=== PATIENT | female | born 1990 | race African-American/Black ===

== ENCOUNTER 2016-11-01 15:27 | Inpatient (IN) ==
[2016-11-01] MEDS ORDERED: ONDANSETRON 4 MG/2 ML VIAL IV PRN ×2 (16:43→18:14)
[2016-11-01] MEDS ORDERED: FAMOTIDINE 20 MG/2 ML VIAL IV ONE (16:46)
[2016-11-01] MEDS ORDERED: CITRIC ACID/SODIUM CITRATE 30 ML UDCUP PO ONE (16:46)
[2016-11-01] MEDS ORDERED: LACTATED RINGERS 1,000 ML IV ONE (16:50)
[2016-11-01] MEDS ORDERED: OXYTOCIN/LR 20 UNIT/1,000 ML BAG IV ONE ×2 (16:51→18:14)
[2016-11-01] MEDS ORDERED: LACTATED RINGERS 1,000 ML IV SCH ×2 (17:00)
[2016-11-01 17:17] LABS: Barbiturates Screen,Urine Negative (Negative); Benzodiazepines Screen,Urine Negative (Negative); Cannabinoid Screen,Urine Negative (Negative); Opiate Screen,Urine Negative (Negative); Phencyclidine Screen,Urine Negative (Negative)
[2016-11-01 17:47] LABS: Basophils % 0.1 % (0.0-0.8); Eosinophils % 0.2 % (0.00-10.9); Hematocrit 35.9 VOL% (35.7-47.0); Hemoglobin 12.2 GM/DL (12.0-16.0); Immature Granulocytes % 0.6 %; Immature Granulocytes Absolute 0.07 #; Lymphocytes % 7.7 % (21.3-54.2); Mean Corpuscular Hemoglobin 27 PG (27-34); Mean Corpuscular Volume 80.1 FL (87-102); Mean Platelet Volume 12.5 FL (9.6-12.0); Monocytes # 1.1 10*3/uL (0.11-0.8); Monocytes % 8.9 % (1.7-12.7); Neutrophils # 10.2 10*3/uL (1.4-7.4); Neutrophils % 82.5 % (38.7-73.9); Platelet Count 192 T/CUMM (130-400); Red Blood Count 4.48 MC/CUMM (3.8-5.5); Red Cell Distribution Width 14.3 % (9.3-17.3); White Blood Count 12.3 T/CUMM (4-12)
[2016-11-01] MEDS ORDERED: PHENYLEPHRINE 1 MG/10 ML SYRINGE IV ONE (18:00)
[2016-11-01] MEDS ORDERED: ONDANSETRON 4 MG/2 ML VIAL ONE (18:00)
--- NOTE | 2016-11-01 18:07 | OB/GYN History & Physical ---
History of Present Illness History of present illness: Ms. Heller is a 26 year old female Pt. 26y/o @ 39 wks QUENTIN 11/08/16 with h/o previous c/s x 1 presents with complaints of leakage of fluid since 130am today. + contractions, no vaginal bleeding. + movement. Pt. care with Dr. Ayala. Home Medications Medication Instructions Recorded Confirmed Type Multivitamin () [ 1 tablet PO DAILY 11/01/16 11/01/16 History Vitamin] Allergies Allergy/AdvReac Type Severity Reaction Status Date / Time No Known Allergies Allergy Unverified 01/09/15 08:15 12 point system: reviewed and no additional remarkable complaints except as stated Medical,Surgical,& Family Hx - Medical History Neurology: No history of: Seizures - Surgical History Reproductive Surgeries: Surgical HX of;: Section (2006) - Social History Smoking Status: Smoker, status unknown Frequency of Alcohol Use: None Type of Drug Use: None 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 General appearance: mild distress - Antepartum / Post Antepartum Exam Cervix - Dilatation: 3cm Heart Rate: category 2 tracing, moderate variability, occasional variables with late co [place]: regular - Respiratory Respiratory exam: Present: clear to auscultation bilaterally - Cardiovascular Cardiovascular exam: Present: regular rate and rhythm - GI/Abdominal GI/Abdominal exam: Present: normal bowel sounds - Extremities Exam Extremities exam: Present: normal inspection Assessment and Plan (1) Previous delivery, antepartum Status: Acute Current Visit: Yes (2) Active labor at term Status: Acute Assessment and plan: 1. admit to labor and delivery 2. ivfs 3. labs 4. continous external monitoring 5. i counseled pt regarding heart rate tracing- category 2 with occasional variables and my recommendation to proceed with repeat delivery vs . pt expressed her understanding and agrees to repeat c/s. R/B/ A discussed and patient expressed her understanding. all questions answered. consent signed and witnessed. Current Visit: Yes Results - Labs CBC & BMP: 11/01/16 16:23
--- NOTE | 2016-11-01 18:13 | Operative Note ---
Date of procedure: 11/01/16 Pre-op diagnosis: 26y/o @ 39 with prev c/s x 1 SROM in labor with variable decels for RPT c/s Post-op diagnosis: same Procedure: FINDINGS: A living male , vertex , time 1910, NASIM position, weight 7lbs 5oz, scores 8 and 9. PROCEDURE: REPEAT DELIVERY, LYSIS OF ADHESIONS. DESCRIPTION OF PROCEDURE: The patient was brought to the operating room after her spinal preparation, and Wen had been performed. The abdomen was prepped and draped in the normal sterile fashion and tested for analgesia. When found to be adequate, a low-abdominal Pfannenstiel incision was made with the first knife and carried down to the fascia with the bovie. The fascia was cleared of subcutaneous tissue. Bleeding points were clamped with hemostats and Bovie coagulated. The fascia was incised in the midline and extended laterally with curved Hill scissors. Chema clamps were placed on the fascial edge, anteriorly. The rectus muscles were by sharp dissection. The rectus muscles were divided in the midline by sharp dissection. Dense adhesions lysed carefully between rectus muscle and underlying parietoperitoneum. The parietoperitoneum was grasped with hemostats and carefully entered and the incision extended with Metzenbaum scissors. The bladder blade was inserted. The visceroperitoneum was grasped with smooth pickups, entered with Metzenbaum scissors, and extended laterally. The bladder flap was created by gentle blunt dissection and placed behind the bladder blade. The lower uterine segment was carefully incised with a scalpel and extended laterally with bandage scissors. A living male was delivered atraumatically from the vertex presentation. The baby was suctioned and cried immediately, and was handed to the pediatric team in attendance. The placenta was delivered with gentle uterine massage. The uterus was explored with a wet lap sponge and found to be clear of membranes. The angles of the incision were sutured 0 vicryl in a locked running fashion. Hemostasis was carefully checked and found to be satisfactory. The fallopian tubes and ovaries were inspected and found to be normal bilaterally. Interceed was then placed over the uterine incision. The peritoneum was approximated using 2. 0 chromic in a running fashion. The muscle was reapproximated using 2.0 chromic in an interrupted fashion. The fascia was closed with 0-Vicryl in a running fashion. The subcutaneous tissue was approximated with interrupted 2-0 plain catgut. The skin was closed with insorb lee. The patient was transferred to the recovery room in good condition. Anesthesia: spinal Surgeon / Physician: Aide Greene Estimated blood loss: other (750CC) Specimens: other (placenta, cord, membranes) Condition: stable Disposition: floor Results - Labs CBC & BMP: 11/02/16 04:01 Discharge Plan - Discharge Data Disposition: Disch To Home/Self Care - Discharge Medications New oxyCODONE/ACETAMINOPHEN 5-325 [Percocet 5-325] 1 tablet PO Q6H PRN #30 tablet PRN Reason: Abdominal Pain No Action Multivitamin () [ Vitamin] 1 tablet PO DAILY - Follow Up or Referral Follow Up: Lionel Ayala DO [Primary Care Provider] - 1 Week - Forms/Instructions Instructions: Depression (GEN), Perineal Care (DC), Surgical Site Infections (GEN), Wound Healing and Your Diet (DC), Bleeding (DC)
[2016-11-01] MEDS ORDERED: ACETAMINOPHEN 325 MG TABLET PO PRN (18:14)
[2016-11-01] MEDS ORDERED: RHO(D) IMMUNE GLOBULIN 300 MCG SYRINGE IM ONE ×2 (18:14→18:30)
[2016-11-01] MEDS ORDERED: TISSUE ADHESIVE 1 EACH APPLICATOR TOP ONE (19:37)
[2016-11-01 19:42] LABS: Cord Arterial Blood HCO3 20.1 MMOL/L
[2016-11-01 19:44] LABS: Cord Venous Blood HCO3 21.9 MMOL/L; Cord Venous Blood PCO2 61.5 MMHG; Cord Venous Blood PO2 13.1
[2016-11-01] MEDS ORDERED: MIDAZOLAM 2 MG/2 ML VIAL ONE (20:36)
[2016-11-01] MEDS ORDERED: MORPHINE 10 MG/10 ML VIAL ONE (20:36)
--- NOTE | 2016-11-01 20:40 | Anesthesia Post-Op ---
Anesthesia Post OP - Post Ansesthetic Evaluation Patient seen in post op: Yes Resp: within normal limits CV: within normal limits Mental: within normal limits Temp: within normal limits [id number]: within normal limits Nausea and Vomiting: within normal limits Pain: within normal limits
[2016-11-01] MEDS ORDERED: diphenhydrAMINE 50 MG/1 ML VIAL IV PRN (23:18)
[2016-11-01] MEDS ORDERED: diphenhydrAMINE 50 MG/1 ML VIAL ONE (23:20)
[2016-11-01] MEDS: DOCUSATE SODIUM 100 MG CAPSULE PO SCH (23:26)
[2016-11-01] MEDS: LACTATED RINGERS 1,000 ML IV SCH (23:28)
[2016-11-02 04:11] LABS: Basophils % 0.1 % (0.0-0.8); Hematocrit 33.2 VOL% (35.7-47.0); Hemoglobin 11.3 GM/DL (12.0-16.0); Immature Granulocytes % 0.4 %; Immature Granulocytes Absolute 0.06 #; Lymphocytes # 0.8 10*3/uL (1.4-4.0); Lymphocytes % 5.4 % (21.3-54.2); Mean Corpuscular Hemoglobin 27 PG (27-34); Mean Corpuscular Volume 80.4 FL (87-102); Mean Platelet Volume 11.6 FL (9.6-12.0); Monocytes # 0.8 10*3/uL (0.11-0.8); Monocytes % 5.2 % (1.7-12.7); Neutrophils % 88.9 % (38.7-73.9); Platelet Count 156 T/CUMM (130-400); Red Blood Count 4.13 MC/CUMM (3.8-5.5); Red Cell Distribution Width 14.1 % (9.3-17.3); White Blood Count 14.7 T/CUMM (4-12)
[2016-11-02 04:15] LABS: Apearance,Urine CLEAR (Clear); Bacteria,Urine Occasional /HPF (Few); Bilirubin,Urine Negative (Negative); Blood, Urine Negative (Negative); Glucose,Urine (UA) Negative (Negative); Ketones,Urine Negative (Negative); Mucus,Urine Occasional /LPF (Occasional); Nitrite,Urine Negative (Negative); Protein,Urine Negative; Urine Color Yellow (Yellow); Urine Specific Gravity 1.014 (1.001-1.035)
[2016-11-02 05:15] LABS: Hypochromasia Slight; Platelet Estimate Normal
[2016-11-02] MEDS ORDERED: diphenhydrAMINE CAP 50 MG CAPSULE PO PRN (05:27)
[2016-11-02] MEDS: LACTATED RINGERS 1,000 ML IV SCH (06:26)
[2016-11-02] MEDS: MULTIVITAMIN (PRENATAL) TABLET PO SCH (08:53)
[2016-11-02] MEDS: DOCUSATE SODIUM 100 MG CAPSULE PO SCH ×2 (08:53→20:16)
--- NOTE | 2016-11-02 13:08 | OB/GYN Progress Note ---
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 Having minimal discomfort and requiring minimal pain medication. Exam CATARACT LENS GENERATOR - Constitutional Vitals: Vital Signs Temp Pulse Resp BP Pulse Ox 11/02/16 08:00 98.2 F 86 20 102/66 98 11/02/16 04:25 98.7 F 76 18 113/64 97 11/02/16 01:55 98.6 F 78 16 115/67 97 11/02/16 01:00 20 11/02/16 00:00 97.6 F 114 H 20 103/51 99 11/01/16 23:00 97.2 F L 89 20 109/66 98 General appearance: no acute distress - Head Head exam: Present: normal inspection - Respiratory Respiratory exam: Present: clear to auscultation bilaterally - Cardiovascular Cardiovascular exam: Present: regular rate and rhythm - GI/Abdominal GI/Abdominal exam: Present: soft. Absent: tenderness - Extremities Exam Extremities exam: Present: normal inspection - Back Exam Back exam: Present: normal inspection - Neurological Exam Neurological exam: Present: alert, oriented X3 - Psychiatric Psychiatric exam: Present: normal affect, normal mood - Skin Skin exam: Present: warm, dry Results - Labs CBC & BMP: 11/02/16 04:01
[2016-11-02] MEDS: IBUPROFEN 800 MG TABLET PO PRN (16:13)
[2016-11-02] MEDS: MAGNESIUM HYDROXIDE SUSP 30 ML UDCUP PO PRN (20:16)
[2016-11-03] MEDS: MAGNESIUM HYDROXIDE SUSP 30 ML UDCUP PO PRN ×2 (08:43→20:20)
[2016-11-03] MEDS: MULTIVITAMIN (PRENATAL) TABLET PO SCH (08:43)
[2016-11-03] MEDS: DOCUSATE SODIUM 100 MG CAPSULE PO SCH ×2 (08:43→20:20)
[2016-11-03] MEDS: SIMETHICONE CHEW 80 MG TABLET PO PRN (08:44)
[2016-11-03] MEDS: IBUPROFEN 800 MG TABLET PO PRN (08:44)
--- NOTE | 2016-11-03 10:01 | OB/GYN Progress Note ---
Assessment and Plan (1) Status post repeat low transverse section Status: Acute Assessment and plan: POD#2 s/p Repeat due to failed . Pt with gas pains but is otherwise doing well. The pt is to ambulate. precautions given. 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 She is tolerating food however. Her bleeding and pain are under control. Exam IMPRESS ASSOCIATE - Constitutional Vitals: Vital Signs Temp Pulse Resp BP Pulse Ox 11/03/16 08:00 20 11/03/16 06:47 18 11/03/16 06:00 18 11/03/16 05:00 18 11/03/16 04:00 97.5 F L 79 18 94/51 97 11/03/16 03:00 18 11/03/16 02:00 18 11/03/16 01:00 18 11/02/16 23:58 97.1 F L 62 18 114/62 98 11/02/16 23:00 18 11/02/16 20:00 97.1 F L 77 18 90/56 98 11/02/16 16:00 98.4 F 85 18 105/62 97 11/02/16 15:00 16 11/02/16 14:00 16 11/02/16 12:00 97.2 F L 82 16 106/67 97 General appearance: normal weight, mild distress - Respiratory Respiratory exam: Absent: accessory muscle use - Cardiovascular Cardiovascular exam: Present: regular rate and rhythm - GI/Abdominal GI/Abdominal exam: Absent: guarding, tenderness, rebound - Extremities Exam Extremities exam: Absent: calf tenderness - Neurological Exam Neurological exam: Present: alert, oriented X3 - Psychiatric Psychiatric exam: Present: normal affect - Skin Skin exam: Present: normal color Results - Labs CBC & BMP: 11/02/16 04:01
[2016-11-04] MEDS ORDERED: BISACODYL 10 MG SUPP RECTAL PRN (07:33)
[2016-11-04] MEDS: SIMETHICONE CHEW 80 MG TABLET PO PRN (08:43)
[2016-11-04] MEDS: DOCUSATE SODIUM 100 MG CAPSULE PO SCH (08:43)
[2016-11-04] MEDS: MULTIVITAMIN (PRENATAL) TABLET PO SCH (08:43)
[2016-11-04] MEDS: MAGNESIUM HYDROXIDE SUSP 30 ML UDCUP PO PRN (08:43)
--- NOTE | 2016-11-04 09:34 | Discharge Summary ---
Hospital Course - Hospital Course Hospital Course: The patient is a 26-year-old 00 to who came in complaining of leakage of fluid and was going to attempt a however due to variables on the heart tones it was decided to proceed with a repeat . The patient had a please review the op note for details of the procedure. The postoperative care was routine and without any complications the patient was ready to go home on postoperative day #3. Precautions were given. She was to follow-up with Dr. Ayala within a week. In addition, the pt started passing gas and even had a BM on POD#2. Diagnosis - Discharge Diagnosis (1) Status post repeat low transverse section Status: Acute Specialty Discharge - Follow Up or Referrals Follow up with: Lionel Ayala DO [Primary Care Provider] - 1 Week Discharge Plan - Discharge Data Disposition: Disch To Home/Self Care Condition at Discharge: Stable Discharge Diet: advance to your usual diet Activity: no lifting Hygiene: may shower Weight Bearing at Discharge: full weight bearing Driving: not until seen by doctor Contact your physician if you experience:: fever over 101, Difficulty voiding, Redness or swelling, Nausea/Vomiting, Shortness of breath, Bleeding, pain uncontrolled by pain medications - Discharge Medications New oxyCODONE/ACETAMINOPHEN 5-325 [Percocet 5-325] 1 tablet PO Q6H PRN #30 tablet PRN Reason: Abdominal Pain No Action Multivitamin () [ Vitamin] 1 tablet PO DAILY - Follow Up or Referral - Forms/Instructions Instructions: Depression (GEN), Perineal Care (DC), Surgical Site Infections (GEN), Wound Healing and Your Diet (DC), Bleeding (DC) Exam - Constitutional Vitals: Period Temp Pulse Resp BP Sys/Marr Pulse Ox Last 24 Hr 97.4 F-98.7 F 81-105 18-20 107-117/63-74 98-99 General appearance: normal weight, no acute distress - Respiratory Respiratory exam: Absent: accessory muscle use - Cardiovascular Cardiovascular exam: Present: regular rate and rhythm - GI/Abdominal GI/Abdominal exam: Absent: guarding, tenderness, rebound - Extremities Exam Extremities exam: Absent: calf tenderness - Neurological Exam Neurological exam: Present: alert, oriented X3 - Psychiatric Psychiatric exam: Present: normal affect, normal mood - Skin Skin exam: Present: normal color, warm DS: Provider Date of admission: 11/01/16 16:30 Primary care physician: Lionel Ayala DO Attending physician on admission: Aide Greene, Consults: 11/01/16 16:43 Consult to Anesthesiology [CONS] Routine Consulting Provider: Reason for Anesthesiology: Epidural Consult Comment: Epidural for pain managment 11/01/16 16:47 Consult to Anesthesiology [CONS] Routine Consulting Provider: Reason for Anesthesiology: Pre-op Clearance 11/01/16 18:14 Consult to Resource Coordinator [CONS] Routine Consult Resource Coordinator: Breast Feeding Discharging clinician: Riana Devi- Expected date of discharge: 11/04/16
[2016-11-04 10:09] VITALS: BP 130/71
--- NOTE | 2016-11-05 17:19 | Pathology Report from [facility] ---
[facility] ACCESSION # : [id number] PATIENT NAME : Rajinder Morgan. ORDERING DR : ANDREEA BOLIVAR DO CLINICAL HX: IUP @ 39 weeks gestation - Repeat due to spontaneous rupture of membranes 11/01/2016 POST-OP DX: Same SPECIMEN INFO: Intact placenta GROSS DESCRIPTION: Received fresh labeled with the patients name and consists of a 539 gram placenta which measures 20.5 x 18.0 x 2.5 cm. membranes are pink-mathews and translucent. The umbilical cord measures 10.5 cm, contains three vessels and is centrally inserted. The surface is blue-white and intact. The maternal surface displays hemorrhagic red-brown cotyledons. No abnormalities appreciated upon sectioning. Sections submitted: A membranes and cord, B and maternal surfaces. DIAGNOSIS FOR RAJINDER MORGAN: PLACENTA, 39 WEEKS GESTATION, SECTION : Mature placenta, 539 grams trim weight. Acute subchorionitis. Chorionic vasculitis. Acute chorioamnionitis. Tri-vascular umbilical cord, 10.5 cm in length, with focal acute phlebitis. COLLECTED DATE: 11/02/2016 [facility] REPORT DATE: 11/05/2016 ELECTRONICALLY SIGNED BY: Delisa Linton M.D. 11/05/2016 - 14:40:38 [facility]
== END 2016-11-04 11:45 | disposition home or self-care (01) | DRG 540 ==
LOC: N.LDOUT 15:27 → N.LD 16:30 → N.OB 22:38
PROVIDERS: ADMIT Obstetrics & Gynecology; ATTEND Obstetrics & Gynecology
PROC: LDCSECT (ICD-10-PCS; 2016-11-01 16:30)